=== PATIENT | female | born 1955 | race Two or more races ===

== ENCOUNTER → 2016-09-27 | Outpatient (CLI) | payer OTHER ==
[2016-07-14 11:00] VITALS: BP 102/46
[~2016-09-27] MED LIST: ATOR40TA PO; CITA10TA4 PO; IBUP-1027 PO; LISI1TAB7 PO; METF500T4 PO; TRAM50TA PO
--- NOTE | 2016-09-27 12:01 | RAD ---
Radionuclide bone scan, 09/27/2016: History: Staging breast cancer Whole body imaging was performed following IV injection of 26.0 mCi of technetium 99m MDP. No previous bone scan is available at this time for correlative purposes. The following findings are delineated: 1. There is mildly increased activity in the mid to lower lumbar spine at the L3-4 level. This is a nonspecific finding which may be on an arthritic basis. A solitary bone metastasis is less likely. Correlation with lumbar spine radiographs is suggested. 2. Increased activity at both knees, feet, wrists and shoulders is compatible with arthritis. 3. Activity of radionuclide about the skeleton and major joints is otherwise unremarkable.
== END | disposition home or self-care (01) ==
LOC: NM 07:58
PROVIDERS: ATTEND Internal Medicine Hematology & Oncology
DX: C50.212 Malignant neoplasm of upper-inner quadrant of left female breast (principal)
CPT/HCPCS: 78306; 96374; A9503

== ENCOUNTER → 2016-11-17 | Outpatient (CLI) | payer OTHER ==
[2016-07-14 11:00] VITALS: BP 102/46
--- NOTE | 2016-11-17 14:36 | KCIC ---
PROCEDURE Bone mineral density exam HISTORY Postmenopausal, diabetes, hysterectomy COMPARISON None FINDINGS Bone mineral density exam utilizing DEXA was performed. Left hip bone mineral density of 0.648 grams/centimeter square corresponds with T-score-2.4 and a Z-score-1.4. Lumbar spine bone mineral density of 0.758 grams/centimeter squared corresponds with T-score-2.4 and a Z-score of-1.0. World Health Organization criteria for bone mineral density interpretation: Normal T-score greater than or equal to-1.0, Osteopenia T score between-1.0 and-2.5, Osteoporosis T-score less than or equal to-2.5. IMPRESSION 1. There is osteopenia of the lumbar spine and the left hip. Electronically signed by: Russell Rivas MD (Nov 17, 2016 14:34:46)
== END | disposition home or self-care (01) ==
LOC: KCIC DEXA 13:16
PROVIDERS: ATTEND Internal Medicine Hematology & Oncology
DX: Z78.0 Asymptomatic menopausal state (principal); M85.80 Other specified disorders of bone density and structure, unspecified site
CPT/HCPCS: 77080

== ENCOUNTER 2018-02-23 04:38 | Emergency (ER) | payer OTHER ==
[2018-02-23 05:06] LABS: ADD MAN DIFF? NO
[2018-02-23 05:08] LABS: BASO # 0.1 x10^3/uL (0.0-0.2); BASO % 1 % (0-3); EOS # 0.2 x10^3/uL (0.0-0.7); EOS % 3 % (0-3); HEMATOCRIT 36.3 % (36.0-47.0); HEMOGLOBIN 12.5 g/dL (12.0-15.5); LYMPH # 2.2 x10^3/uL (1.0-4.8); LYMPH % 27 % (24-48); MEAN CORPUSCULAR HEMOGLOBIN 31 pg (25-35); MEAN CORPUSCULAR HGB CONC 35 g/dL (31-37); MEAN CORPUSCULAR VOLUME 89 fL (79-100); MONO # 0.7 x10^3/uL (0.0-1.1); MONO % 9 % (0-9); NEUT # 4.8 x10^3uL (1.8-7.7); NEUT % 60 % (31-73); PLATELET COUNT 342 x10^3/uL (140-400); RED BLOOD COUNT 4.08 x10^6/uL (3.50-5.40); RED CELL DISTRIBUTION WIDTH 14.2 % (11.5-14.5)
[2018-02-23 05:09] LABS: BILIRUBIN,URINE NEGATIVE (NEG); CLARITY,URINE CLEAR; COLOR,URINE YELLOW; GLUCOSE,URINE NEGATIVE (NEG); NITRITE,URINE NEGATIVE (NEG); PROTEIN,URINE NEGATIVE (NEG-TRACE); UROBILINOGEN,URINE 0.2 mg/dL (0.2 mg/dL)
[2018-02-23 05:18] LABS: ANION GAP 13 (6-14); BLOOD UREA NITROGEN 15 mg/dL (7-20); BUN/CREATININE RATIO 15 (6-20); CALCIUM 9.8 mg/dL (8.5-10.1); CARBON DIOXIDE 25 mmol/L (21-32); CHLORIDE 98 mmol/L (98-107); GFR 56.6; GLUCOSE 109 mg/dL (70-99); POTASSIUM 3.5 mmol/L (3.5-5.1); SODIUM 136 mmol/L (136-145)
[2018-02-23 05:24] LABS: ALBUMIN 4.3 g/dL (3.4-5.0); ALBUMIN/GLOBULIN RATIO 1.3 (1.0-1.7); ALK PHOS 111 U/L (46-116); ALT (SGPT) 20 U/L (14-59); AST (SGOT) 18 U/L (15-37); TOTAL BILIRUBIN 0.3 mg/dL (0.2-1.0); TOTAL PROTEIN 7.7 g/dL (6.4-8.2)
[2018-02-23 05:26] LABS: TROPONINI < 0.017 ng/mL (0.000-0.055)
[2018-02-23 05:36] LABS: CKMB INDEX 1.5 % (0-4); CKMB MASS 1.3 ng/mL (0.0-3.6); CREATINE KINASE 89 U/L (26-192)
[2018-02-23 05:47] LABS: BACTERIA,URINE FEW /HPF (0-FEW); SQUAMOUS EPITHELIAL CELL,UR FEW /LPF; WBC,URINE 0 /HPF (0-4)
== END 2018-02-23 06:23 | disposition home or self-care (01) ==
LOC: ER 04:38
DX: M79.1 Myalgia (principal); E78.00 Pure hypercholesterolemia, unspecified; E11.9 Type 2 diabetes mellitus without complications; I10 Essential (primary) hypertension
CPT/HCPCS: 36415; 80053; 81001; 82553; 84484; 85025; 87086; 99284

== ENCOUNTER → 2018-12-25 | Outpatient (CLI) | payer OTHER ==
[2018-02-23 05:50] VITALS: BP 127/65
[~2018-12-25] MED LIST changes: +ANAS1TAB47 PO; +DENO60DI SQ; +METF500T16 PO; -METF500T4 PO
--- NOTE | 2018-12-25 14:16 | RAD ---
DATE: 12/25/2018 EXAM: DIGITAL DIAGNOSTIC RT HISTORY: Left mastectomy COMPARISON: 03/02/2016, 03/22/2016, 06/06/2017 mammographic exams This study was interpreted with the benefit of Computerized Aided Detection (CAD). Breast Density: HETERO The breast parenchyma is heterogenously dense, which could reduce sensitivity of mammography. Breast parenchyma level C. FINDINGS: No new mass. No suspicious calcific lesion or distortion. Benign-appearing right axillary lymph nodes are present. IMPRESSION: Benign and stable findings. Tomosynthesis is recommended for future mammographic examinations considering the breast density and patient history of left mastectomy. BI-RADS CATEGORY: 1 NEGATIVE RECOMMENDED FOLLOW-UP: 12M 12 MONTH FOLLOW-UP PQRS compliance statement: Patient information was entered into a reminder system with a target due date in one year for the next mammogram. Mammography is a sensitive method for finding small breast cancers, but it does not detect them all and is not a substitute for careful clinical examination. A negative mammogram does not negate a clinically suspicious finding and should not result in delay in biopsying a clinically suspicious abnormality. "Our facility is accredited by the [employer] Mammography Program."
== END | disposition home or self-care (01) ==
LOC: MAMMO 12:33
PROVIDERS: ATTEND Internal Medicine Hematology & Oncology
DX: C50.212 Malignant neoplasm of upper-inner quadrant of left female breast (principal); Z17.0 Estrogen receptor positive status [ER+]; Z90.12 Acquired absence of left breast and nipple
CPT/HCPCS: 77065

== ENCOUNTER → 2020-01-03 | Outpatient (CLI) | payer OTHER ==
[2018-02-23 05:50] VITALS: BP 127/65
[~2020-01-03] MED LIST changes: +LISI1TAB20 PO; -LISI1TAB7 PO
--- NOTE | 2020-01-03 11:37 | RAD ---
EXAMINATION: Diagnostic right breast mammogram, 01/03/2020 10:45 AM CLINICAL INDICATION: 64-year-old woman presenting for right breast diagnostic mammogram. History of left breast cancer post mastectomy in 2016. COMPARISON: Right breast mammogram 12/25/2018 , 06/06/2017 TECHNIQUE: Digital full-field CC and MLO views, and CC and MLO tomosynthesis views of the right breast were obtained. CAD was utilized. FINDINGS: The right breast is heterogeneously dense, which may obscure small masses. There is no mass, suspicious calcification, or architectural distortion. IMPRESSION: 1. No mammographic evidence of malignancy. 2. BI-RADS 1: Negative. 3. Routine annual screening mammogram is recommended in 1 year. The patient will receive a reminder letter by mail when she is due for her next exam. Electronically signed by: Brandi Virk MD (01/03/2020 11:34 AM) [id number]
== END | disposition home or self-care (01) ==
LOC: MAMMO 10:28
PROVIDERS: ATTEND Internal Medicine Hematology & Oncology
DX: C50.212 Malignant neoplasm of upper-inner quadrant of left female breast (principal); Z17.0 Estrogen receptor positive status [ER+]
CPT/HCPCS: 77065; G0279; 77061

== ENCOUNTER → 2021-02-18 | Outpatient (CLI) | payer OTHER ==
[2018-02-23 05:50] VITALS: BP 127/65
--- NOTE | 2021-02-18 15:51 | RAD ---
[facility] DIGITAL MAMMO SCREENING UNILT+FRANCISCO J 02/18/2021 12:48 PM INDICATION: History of left mastectomy. Screening. COMPARISON: 01/03/2020, 12/25/2018, 06/06/2017 TECHNIQUE: 3D tomosynthesis was performed in CC and MLO projections. 2D views were obtained from the 3D data. CAD was utilized as needed. FINDINGS: Breast density: Category C: The breats are heterogeneously dense, which may obscure small masses. Right breast: There are no suspicious microcalcifications, masses or areas of architectural distortio n. Left breast: There are no suspicious microcalcifications, masses or areas of architectural distortion . Right mammogram is compared to prior examinations appears unchanged. IMPRESSION: Negative right mammogram. BI-RADS category: 1; Negative Recommendations: Recommend annual screening mammography in one year. Electronically signed by: Anni Romero MD (02/18/2021 3:49 PM) [email or web address]
== END ==
LOC: MAMMO 12:47
PROVIDERS: ATTEND Family Medicine
DX: Z12.31 Encounter for screening mammogram for malignant neoplasm of breast (principal)
CPT/HCPCS: 77063; 77067

== ENCOUNTER 2021-03-26 13:34 | Emergency (ER) | payer OTHER ==
[2018-02-23 05:50] VITALS: BP 127/65
== END 2021-03-26 16:06 | disposition left against medical advice (07) ==
LOC: ER 13:34
DX: R10.9 Unspecified abdominal pain (principal); Z53.21 Procedure and treatment not carried out due to patient leaving prior to being seen by health care provider

== ENCOUNTER 2021-12-06 15:11 | Inpatient (IN) | payer OTHER ==
[~2021-12-06] VITALS: Ht 162.6 cm; Wt 54.7 kg
[~2021-12-06 15:11] MED LIST changes: -CITA10TA4 PO; +CITA10TA5 PO; -LISI1TAB20 PO; +LISI1TAB39 PO
[2021-12-06] MEDS ORDERED: IV NORMAL SALINE 1000ML BAG 1,000 ML IV ONE (16:00)
--- NOTE | 2021-12-06 16:10 | PHYS DOC ---
Past Medical History Past Medical History: Cancer, Diabetes-Type II, High Cholesterol, Hypertension, Other Additional Past Medical Histor: breast cancer Past Surgical History: Cancer Surgery, Hysterectomy, Other Additional Past Surgical Histo: left mastectomy, back Smoking Status: Current Every Day Smoker Alcohol Use: Heavy Drug Use: None General Adult EDM: Chief Complaint: WEAKNESS/GENERALIZED HPI: HPI: Patient is a 66-year-old female who presents today with generalized weakness, body aches, right leg pain and chills. Patient is [place]-speaking only so all information obtained during the HPI and review of systems was obtained using interpretive services. Patient states that she has had generalized weakness body aches and chills over the last week, and they have progressively gotten worse, she also states that her right leg has been causing her pain up to 2 weeks, she denies trauma or or any other injury at this time, she does state that she has a history of back surgery in the past but she does not feel this is related to this. She states that she has a past medical history of diabetes and breast cancer in the past, she is not currently having any treatment for her breast cancer at this time, she sees Dr. Lee for all medical management of her issues. [] Review of Systems: Review of Systems: Constitutional: chills. [] Eyes: Denies change in visual acuity. [] HENT: Denies nasal congestion or sore throat. [] Respiratory: Denies cough or shortness of breath. [] Cardiovascular: Denies chest pain or edema. [] GI: Denies abdominal pain, nausea, vomiting, bloody stools or diarrhea. [] : Denies dysuria. [] Musculoskeletal: Body aches and right leg pain Integument: Denies rash. [] Neurologic: Generalized weakness denies headache, focal weakness or sensory changes. [] Endocrine: Denies polyuria or polydipsia. [] Lymphatic: Denies swollen glands. [] Psychiatric: Denies depression or anxiety. [] Heart Score: C/O Chest Pain: No Risk Factors: Risk Factors: DM, Current or recent (<one month) smoker, HTN, HLP, family history of CAD, obesity. Risk Scores: Score 0 - 3: 2.5% MACE over next 6 weeks - Discharge Home Score 4 - 6: 20.3% MACE over next 6 weeks - Admit for Clinical Observation Score 7 - 10: 72.7% MACE over next 6 weeks - Early Invasive Strategies Current Medications: Current Medications Medications (Trade) Dose Ordered Sig/Jefry Start Time Stop Time Status Last Admin Dose Admin Sodium Chloride 1,000 ml @ 999 mls/hr 1X ONCE 12/06/21 16:00 12/06/21 17:00 Allergies: Allergies: Allergies Coded Allergies Type Severity Reaction Last Updated Verified No Known Drug Allergies 12/06/21 No Physical Exam: PE: Constitutional: Well developed, well nourished, mild distress, non-toxic appearance. [] HENT: Normocephalic, atraumatic, bilateral external ears normal, oropharynx moist, no oral exudates, nose normal. [] Eyes: PERRLA, EOMI, conjunctiva normal, no discharge. [] Neck: Normal range of motion, no tenderness, supple, no stridor, no nuchal rigidity Cardiovascular:Heart rate regular rhythm, no murmur [] Lungs & Thorax: Bilateral breath sounds clear to auscultation [] Abdomen: Bowel sounds normal, soft, no tenderness, no masses, no pulsatile masses. [] Skin: Warm, dry, no erythema, no rash. [] Back: No tenderness, no CVA tenderness. [] Extremities: No tenderness, no cyanosis, no clubbing, ROM intact, no edema. [] Neurologic: Alert and oriented X 3, normal motor function, normal sensory function, no focal deficits noted. [] Psychologic: Affect normal, judgement normal, mood normal. [] Current Patient Data: Labs: Laboratory Tests Test 12/06/21 13:29 12/06/21 16:10 12/06/21 17:28 Urine Collection Type Unknown Urine Color (Auto) Yellow Urine Turbidity Clear Urine pH (Auto) 6.5 Urine Specific [place] 1.027 Urine Protein (Auto) Negative mg/dL Urine Glucose (Auto)(UA) Negative mg/dL Urine Ketones (Auto) Negative mg/dL Urine Blood (Auto) Trace Urine Nitrite Negative Urine Bilirubin (Auto) Negative Urine Urobilinogen (Auto) Normal mg/dL Urine Leukocyte Esterase (Auto) Negative Urine RBC 0 /HPF Urine WBC 0 /HPF Urine Squamous Epithelial Cells Few /LPF Urine Bacteria 0 /HPF Urine Mucus Slight /LPF White Blood Count 9.8 x10^3/uL Red Blood Count 3.95 x10^6/uL Hemoglobin 11.8 g/dL Hematocrit 34.4 % Mean Corpuscular Volume 87 fL Mean Corpuscular Hemoglobin 30 pg Mean Corpuscular Hemoglobin Concent 34 g/dL Red Cell Distribution Width 13.7 % Platelet Count 263 x10^3/uL Neutrophils (%) (Auto) 80 % Lymphocytes (%) (Auto) 14 % Monocytes (%) (Auto) 4 % Eosinophils (%) (Auto) 1 % Basophils (%) (Auto) 1 % Neutrophils # (Auto) 7.8 x10^3/uL Lymphocytes # (Auto) 1.4 x10^3/uL Monocytes # (Auto) 0.4 x10^3/uL Eosinophils # (Auto) 0.1 x10^3/uL Basophils # (Auto) 0.1 x10^3/uL Sodium Level 136 mmol/L Potassium Level 3.7 mmol/L Chloride Level 101 mmol/L Carbon Dioxide Level 20 mmol/L Anion Gap 15 Blood Urea Nitrogen 26 mg/dL Creatinine 0.9 mg/dL Estimated GFR (Cockcroft-Gault) 63.0 BUN/Creatinine Ratio 29 Glucose Level 118 mg/dL Lactic Acid Level 2.6 mmol/L Calcium Level 9.4 mg/dL Total Bilirubin 0.3 mg/dL Aspartate Amino Transf (AST/SGOT) 23 U/L Alanine Aminotransferase (ALT/SGPT) 37 U/L Alkaline Phosphatase 80 U/L Troponin I High Sensitivity 4 ng/L Total Protein 7.2 g/dL Albumin 3.9 g/dL Albumin/Globulin Ratio 1.2 Influenza Type A Antigen Negative Influenza Type B Antigen Negative SARS-CoV-2 Antigen (Rapid) Negative Current Medications Medications (Trade) Dose Ordered Sig/Jefry Route PRN Reason Start Time Stop Time Status Last Admin Dose Admin Sodium Chloride 1,000 ml @ 999 mls/hr 1X ONCE IV 12/06/21 16:00 12/06/21 17:00 DC 12/06/21 16:25 Iohexol (Omnipaque 300 Mg/ml) 75 ml 1X ONCE IV 12/06/21 18:00 12/06/21 18:01 DC 12/06/21 18:02 Info (CONTRAST GIVEN -- Rx MONITORING) 1 each PRN DAILY PRN MC SEE COMMENTS 12/06/21 18:00 12/08/21 17:59 Vital Signs: Vital Signs Date Time Temp Pulse Resp B/P (MAP) Pulse Ox O2 Delivery O2 Flow Rate FiO2 12/06/21 18:28 84 18 155/74 (101) 98 12/06/21 15:50 97.8 86 22 155/75 (101) 100 Room Air 97.8 Vital Signs Date Time Temp Pulse Resp B/P (MAP) Pulse Ox O2 Delivery O2 Flow Rate FiO2 12/06/21 18:28 84 18 155/74 (101) 98 12/06/21 15:50 97.8 86 22 155/75 (101) 100 Room Air 97.8 Vital Signs Date Time Temp Pulse Resp B/P (MAP) Pulse Ox O2 Delivery O2 Flow Rate FiO2 12/06/21 15:50 97.8 86 22 155/75 (101) 100 Room Air 97.8 EKG: EKG: EKG done at [address] Combs at 1618 shows sinus rhythm at a rate of 79 with no ectopy at a NJ interval of 150 ms with a QTC of 44 ms no STEMI [] Radiology/Procedures: Radiology/Procedures: REASON: weakness PROCEDURE: CHEST AP ONLY XR CHEST 1V 12/06/2021 4:26 PM INDICATION: Weakness COMPARISON: None available TECHNIQUE: Portable frontal view of the chest is provided. FINDINGS: The cardiomediastinal silhouette is within normal limits. Lungs are clear. Surgical clips identified in the left hilar region. There are no significant pleural effusions. There is no pulmonary vascular congestion. No pneumothorax. No suspicious osseous abnormality. IMPRESSION: There is no acute cardiopulmonary process. Electronically signed by: Anni Romero MD (12/06/2021 4:30 PM) [facility] RE[facility]: GENERALIZED WEAKNESS, ELEVATED LACTIC ACID PROCEDURE: CT CHEST ABD PELVIS W/CONTRAST CT chest abdomen and pelvis with contrast: History: Generalized weakness Axial helical images of the chest abdomen and pelvis were obtained after the administration of 100 cc IV Isovue-370 contrast. Comparison: none CT OF THE CHEST WITH IV CONTRAST: There is no mediastinal lymphadenopathy or hematoma. Lymphadenopathy: no Thoracic aorta: normal Lungs and pleural margins: clear There is approximately 50 percent stenosis of the proximal left subclavian artery. Impression: Approximately 50 percent stenosis of left subclavian artery. No acute findings. End Impression CT OF THE ABDOMEN AND PELVIS WITH IV CONTRAST: Liver: Unremarkable Spleen: Unremarkable Pancreas: Unremarkable Adrenal Glands: Unremarkable Kidneys: 7 mm hypoattenuating lesion in the posterior lateral mid left kidney is too small to characterize. Evaluation of stomach and bowel is limited without oral contrast. Lymphadenopathy: no. Free fluid: no. Free air: no. The bladder appears normal. Impression: No acute findings. End impression PQRS Compliance Statement: One or more of the following individualized dose reduction techniques were u tilized for this examination: 1. Automated exposure control 2. Adjustment of the mA and/or kV according to patient size 3. Use of iterative reconstruction technique Electronically signed by: Yandel Conteh III, MD (12/06/2021 6:20 PM) [facility] DICTATED and SIGNED BY: YANDEL CONTEH III, MD DATE: 12/06/211810 [] Course & Med Decision Making: Course & Med Decision Making Pertinent Labs and Imaging studies reviewed. (See chart for details) 1844 with the use of interpretive services I was able to review radiological and laboratory results with patient I did inform her that the only abnormal findings we found was her lactic acid was elevated and that is concerning because I cannot figure out why she is not feeling well. Due to patient's past medical history, I think it would be prudent to admit the patient for further evaluation by the internal medicine service. Patient is agreeable with the plan of care, I did reassess the patient's back and leg she continues to have right leg pain but also has low back pain as well, I will order CT lumbar reconstruction of the low back because the patient has a past medical history of back surgery. I did speak to Dr. Oneill and he is agreeable to admitting this patient for further evaluation and management. Hugo Disclaimer: Hugo Disclaimer: This electronic medical record was generated, in whole or in part, using a voice recognition dictation system. Departure Departure Impression: Primary Impression: Generalized weakness Additional Impressions: Elevated lactic acid level Back pain Qualified Codes: M54.41 - Lumbago with sciatica, right side Disposition: 09 ADMITTED INPATIENT Admitting Physician: SHY Condition: STABLE Referrals: ELADIA LEE MD (PCP) ENRIQUE CABRALES APRN Dec 06, 2021 16:10
[2021-12-06 16:31] LABS: BASO # 0.1 x10^3/uL (0.0-0.2); BASO % 1 % (0-3); EOS # 0.1 x10^3/uL (0.0-0.7); EOS % 1 % (0-3); HEMATOCRIT 34.4 % (36.0-47.0); HEMOGLOBIN 11.8 g/dL (12.0-15.5); LYMPH # 1.4 x10^3/uL (1.0-4.8); LYMPH % 14 % (24-48); MEAN CORPUSCULAR HEMOGLOBIN 30 pg (25-35); MEAN CORPUSCULAR HGB CONC 34 g/dL (31-37); MEAN CORPUSCULAR VOLUME 87 fL (79-100); MONO # 0.4 x10^3/uL (0.0-1.1); MONO % 4 % (0-9); NEUT # 7.8 x10^3/uL (1.8-7.7); NEUT % 80 % (31-73); PLATELET COUNT 263 x10^3/uL (140-400); RED BLOOD COUNT 3.95 x10^6/uL (3.50-5.40); RED CELL DISTRIBUTION WIDTH 13.7 % (11.5-14.5); WHITE BLOOD COUNT 9.8 x10^3/uL (4.0-11.0)
--- NOTE | 2021-12-06 16:33 | RAD ---
XR CHEST 1V 12/06/2021 4:26 PM INDICATION: Weakness COMPARISON: None available TECHNIQUE: Portable frontal view of the chest is provided. FINDINGS: The cardiomediastinal silhouette is within normal limits. Lungs are clear. Surgical clips identified in the left hilar region. There are no significant pleural effusions. There is no pulmonary vascular congestion. No pneumothora x. No suspicious osseous abnormality. IMPRESSION: There is no acute cardiopulmonary process. Electronically signed by: Anni Romero MD (12/06/2021 4:30 PM) [facility]
[2021-12-06 16:45] LABS: CALCIUM 9.4 mg/dL (8.5-10.1); CREATININE 0.9 mg/dL (0.6-1.0); POTASSIUM 3.7 mmol/L (3.5-5.1)
[2021-12-06 16:51] LABS: ALBUMIN 3.9 g/dL (3.4-5.0); ALBUMIN/GLOBULIN RATIO 1.2 (1.0-1.7); TOTAL BILIRUBIN 0.3 mg/dL (0.2-1.0); TOTAL PROTEIN 7.2 g/dL (6.4-8.2)
[2021-12-06 17:00] LABS: BACTERIA,URINE 0 /HPF (0-FEW); RBC,URINE 0 /HPF (0-2); WBC,URINE 0 /HPF (0-4)
[2021-12-06 17:48] LABS: INFLUENZA A PATIENT NEGATIVE (NEGATIVE); INFLUENZA B PATIENT NEGATIVE (NEGATIVE)
[2021-12-06] MEDS ORDERED: IOHEXOL 300 MG/ML 100ML VIAL. IV ONE (18:00)
[2021-12-06] MEDS ORDERED: CONTRAST GIVEN. MC PRN (18:00)
--- NOTE | 2021-12-06 18:22 | RAD ---
CT chest abdomen and pelvis with contrast: History: Generalized weakness Axial helical images of the chest abdomen and pelvis were obtained after the administration of 100 cc IV Isovue-370 contrast. Comparison: none CT OF THE CHEST WITH IV CONTRAST: There is no mediastinal lymphadenopathy or hematoma. Lymphadenopathy: no Thoracic aorta: normal Lungs and pleural margins: clear There is approximately 50 percent stenosis of the proximal left subclavian artery. Impression: Approximately 50 percent stenosis of left subclavian artery. No acute findings. End Impression CT OF THE ABDOMEN AND PELVIS WITH IV CONTRAST: Liver: Unremarkable Spleen: Unremarkable Pancreas: Unremarkable Adrenal Glands: Unremarkable Kidneys: 7 mm hypoattenuating lesion in the posterior lateral mid left kidney is too small to charact erize. Evaluation of stomach and bowel is limited without oral contrast. Lymphadenopathy: no. Free fluid: no. Free air: no. The bladder appears normal. Impression: No acute findings. End impression PQRS Compliance Statement: One or more of the following individualized dose reduction techniques were utilized for this examinat ion: 1. Automated exposure control 2. Adjustment of the mA and/or kV according to patient size 3. Use of iterative reconstruction technique Electronically signed by: Vladimir Ochoa III, MD (12/06/2021 6:20 PM) [facility]
[2021-12-06] MEDS ORDERED: ONDANSETRON PF 4 MG/2 ML VIAL. IVP PRN (19:00)
--- NOTE | 2021-12-06 19:23 | RAD ---
CT lumbar spine without contrast History: Back pain Axial helical images of the lumbar spine were obtained without contrast. Axial, coronal and sagittal reconstruction was performed. Findings: There is beam hardening artifact due to bilateral pedicle screws and posterior fusion rods from prior fusion of L4-S1. The vertebral bodies are aligned. There is no loss of vertebral body stature. Evaluation of the central canal is limited without contrast. There is loss of intervertebral disc hei ght at L3-4. There is a diffuse circumferential disc bulge and hypertrophic ligamentum flavum resulting in moderat e central stenosis at L2-L3 and marked central stenosis at L3-L4. There is marked narrowing of multiple or from the level exerts is loss of fat around the ascending ne rve roots on the right at L3-L4 and L5-S1. On the right at L2-L3 and L4-L5 Impression: 1. Prior fusion of L4-S1. 2. Degenerative changes with multilevel central neuroforaminal stenosis as described above. 2. Compression of the intraforaminal course of the exiting nerve roots on the right L3-4 and L5-S1. End of impression PQRS Compliance Statement: One or more of the following individualized dose reduction techniques were utilized for this examinat ion: 1. Automated exposure control 2. Adjustment of the mA and/or kV according to patient size 3. Use of iterative reconstruction technique Electronically signed by: Vladimir Ochoa III, MD (12/06/2021 7:20 PM) [facility]
--- NOTE | 2021-12-06 19:53 | EKG ---
[facility] [address] [place] [address] Test Date: 2021-12-06 Test Time: 16:16:46 Pat Name: GORDY CHRISTIAN Department: Room: [facility] Gender: F Human Resource Advisor: : [id number] Requested By: ENRIQUE CABRALES Order Number: [id number] Reading MD: Ruperto Rg Measurements Intervals Cummings Rate: 79 P: 50 CO: 150 QRS: -25 QRSD: 90 T: 24 QT: 386 QTc: 444 Interpretive Statements SINUS RHYTHM LEFTWARD AXIS Electronically Signed On 12-09-2021 17:18:58 CDT by uRperto Rg
[2021-12-06 19:55] VITALS: BP 128/70
[2021-12-06 23:09] VITALS: BP 122/63
[2021-12-07 00:24] VITALS: BP 128/70
[2021-12-07 03:25] VITALS: BP 120/66
[2021-12-07 07:00] VITALS: BP 123/61
[2021-12-07] MEDS ORDERED: IV DEXTROSE 5% 250 ML BAG. IV PRN (08:15)
[2021-12-07] MEDS ORDERED: DEXTROSE 50% 25 GM / 50ML DISP.SYRIN. IV PRN (08:15)
--- NOTE | 2021-12-07 08:16 | PDOC1 ---
History and Physical Date of Admission Date of Admission DATE: 12/07/21 TIME: 08:02 Identification/Chief Complaint Chief Complaint Weakness, back pain, right leg pain Source Source: Patient History of Present Illness History of Present Illness Patient is a 66-year-old female with past medical history DM2, presents to the ED with complaints of generalized weakness, body aches, and right leg pain. Patient notes her symptoms have been ongoing for the past week and progressively worsening. She states her leg pain has been for the past 2 weeks. She denies any associated trauma or falls. She does have a prior history of back surgery. Labs on admission showed hemoglobin 11.8, hematocrit 34.4, BUN 26, creatinine 0.9, CBG 118, lactic acid 2.6. CT lumbar spine was obtained in the ED that did show some lumbar nerve root compression. Patient has been admitted for further medical management. Past Medical History Past Medical History Breast cancer, DM2, HTN, HLD Endocrine: Diabetes Past Surgical History Past Surgical History Back surgery Family History Family History: Diabetes Social History Smoke: <1 pack per day ALCOHOL: heavy Drugs: None Current Problem List Problem List Problems Medical Problems: (1) Back pain Status: Acute (2) Elevated lactic acid level Status: Acute (3) Generalized weakness Status: Acute Current Medications Current Medications Current Medications Sodium Chloride 1,000 ml @ 999 mls/hr 1X ONCE IV Last administered on 12/06/21at 16:25; Start 12/06/21 at 16:00; Stop 12/06/21 at 17:00; Status DC Iohexol (Omnipaque 300 Mg/ml) 75 ml 1X ONCE IV Last administered on 12/06/21at 18:02; Start 12/06/21 at 18:00; Stop 12/06/21 at 18:01; Status DC Info (CONTRAST GIVEN -- Rx MONITORING) 1 each PRN DAILY PRN MC SEE COMMENTS; Start 12/06/21 at 18:00; Stop 12/08/21 at 17:59 Ondansetron HCl (Zofran) 4 mg PRN Q8HRS PRN IVP NAUSEA/VOMITING; Start 12/06/21 at 19:00; Stop 12/07/21 at 18:59 Active Scripts Active Reported Arimidex (Anastrozole) 1 Mg Tablet 1 Mg PO DAILY Ibuprofen 400 Mg Tablet 400 Mg PO BID PRN Citalopram Hbr (Citalopram Hydrobromide) 10 Mg Tablet 10 Mg PO DAILY Lipitor (Atorvastatin Calcium) 40 Mg Tablet 40 Mg PO HS Metformin Hcl 500 Mg Tablet 500 Mg PO BIDWMEALS Lisinopril-Hctz 20-25 Mg Tab (Lisinopril/Hydrochlorothiazide) 1 Each Tablet 1 Tab PO DAILY Allergies Allergies: Coded Allergies: No Known Drug Allergies (Unverified , 12/06/21) ROS Review of System GENERAL: Generalized weakness. No history of weight change or fevers. SKIN: No bruising, hair changes or rashes. EYES: No blurred, double or loss of vision. NOSE AND THROAT: No history of nosebleeds, hoarseness or sore throat. HEART: Denies chest pain, denies palpitations. LUNGS: Denies cough, hemoptysis, wheezing or shortness of breath. GASTROINTESTINAL: Nausea. Denies vomiting or abdominal pain. GENITOURINARY: Denies dysuria, frequency, urgency, hematuria. NEUROLOGIC: Denies history of numbness, tingling, tremor or weakness. PSYCHIATRIC: Denies anxiety, denies depression. ENDOCRINE: No history of heat or cold intolerance, polyuria or polydipsia. EXTREMITIES: Right leg pain and weakness. Denies joint stiffness. Physical Exam Physical Exam General: Alert, Oriented X3, Cooperative, No acute distress HEENT: PERRLA, EOMI Lungs: Clear to auscultation, Normal air movement Heart: RRR, no murmurs Cardiovascular: S1, S2 Abdomen: Normal bowel sounds, Soft, No tenderness Extremities: No clubbing, No cyanosis Skin: No rashes, No significant lesion Neuro: Normal speech, Normal tone, Sensation intact Psych/Mental Status: Mental status NL, Mood NL Vitals Vitals Vital Signs Date Time Temp Pulse Resp B/P (MAP) Pulse Ox O2 Delivery O2 Flow Rate FiO2 12/07/21 03:25 97.7 73 18 120/66 (84) 100 Room Air 97.7 Labs Labs Laboratory Tests Test 12/06/21 13:29 12/06/21 16:10 12/06/21 17:28 12/06/21 20:40 Urine Collection Type Unknown Urine Color (Auto) Yellow Urine Turbidity Clear Urine pH (Auto) 6.5 (<5.0-8.0) Urine Specific [place] 1.027 (1.000-1.030) Urine Protein (Auto) Negative mg/dL (Negative) Urine Glucose (Auto)(UA) Negative mg/dL (Negative) Urine Ketones (Auto) Negative mg/dL (Negative) Urine Blood (Auto) Trace (Negative) Urine Nitrite Negative (Negative) Urine Bilirubin (Auto) Negative (Negative) Urine Urobilinogen (Auto) Normal mg/dL (Normal) Urine Leukocyte Esterase (Auto) Negative (Negative) Urine RBC 0 /HPF (0-2) Urine WBC 0 /HPF (0-4) Urine Squamous Epithelial Cells Few /LPF Urine Bacteria 0 /HPF (0-FEW) Urine Mucus Slight /LPF White Blood Count 9.8 x10^3/uL (4.0-11.0) Red Blood Count 3.95 x10^6/uL (3.50-5.40) Hemoglobin 11.8 g/dL (12.0-15.5) Hematocrit 34.4 % (36.0-47.0) Mean Corpuscular Volume 87 fL (79-100) Mean Corpuscular Hemoglobin 30 pg (25-35) Mean Corpuscular Hemoglobin Concent 34 g/dL (31-37) Red Cell Distribution Width 13.7 % (11.5-14.5) Platelet Count 263 x10^3/uL (140-400) Neutrophils (%) (Auto) 80 % (31-73) Lymphocytes (%) (Auto) 14 % (24-48) Monocytes (%) (Auto) 4 % (0-9) Eosinophils (%) (Auto) 1 % (0-3) Basophils (%) (Auto) 1 % (0-3) Neutrophils # (Auto) 7.8 x10^3/uL (1.8-7.7) Lymphocytes # (Auto) 1.4 x10^3/uL (1.0-4.8) Monocytes # (Auto) 0.4 x10^3/uL (0.0-1.1) Eosinophils # (Auto) 0.1 x10^3/uL (0.0-0.7) Basophils # (Auto) 0.1 x10^3/uL (0.0-0.2) Sodium Level 136 mmol/L (136-145) Potassium Level 3.7 mmol/L (3.5-5.1) Chloride Level 101 mmol/L (98-107) Carbon Dioxide Level 20 mmol/L (21-32) Anion Gap 15 (6-14) Blood Urea Nitrogen 26 mg/dL (7-20) Creatinine 0.9 mg/dL (0.6-1.0) Estimated GFR (Cockcroft-Gault) 63.0 BUN/Creatinine Ratio 29 (6-20) Glucose Level 118 mg/dL (70-99) Lactic Acid Level 2.6 mmol/L (0.4-2.0) 1.4 mmol/L (0.4-2.0) Calcium Level 9.4 mg/dL (8.5-10.1) Total Bilirubin 0.3 mg/dL (0.2-1.0) Aspartate Amino Transf (AST/SGOT) 23 U/L (15-37) Alanine Aminotransferase (ALT/SGPT) 37 U/L (14-59) Alkaline Phosphatase 80 U/L (46-116) Troponin I High Sensitivity 4 ng/L (4-50) Total Protein 7.2 g/dL (6.4-8.2) Albumin 3.9 g/dL (3.4-5.0) Albumin/Globulin Ratio 1.2 (1.0-1.7) Influenza Type A Antigen Negative (NEGATIVE) Influenza Type B Antigen Negative (NEGATIVE) SARS-CoV-2 Antigen (Rapid) Negative (NEGATIVE) Test 12/07/21 07:21 Glucose (Fingerstick) 119 mg/dL (70-99) Laboratory Tests Test 12/06/21 13:29 12/06/21 16:10 12/06/21 17:28 12/06/21 20:40 Urine Collection Type Unknown Urine Color (Auto) Yellow Urine Turbidity Clear Urine pH (Auto) 6.5 (<5.0-8.0) Urine Specific [place] 1.027 (1.000-1.030) Urine Protein (Auto) Negative mg/dL (Negative) Urine Glucose (Auto)(UA) Negative mg/dL (Negative) Urine Ketones (Auto) Negative mg/dL (Negative) Urine Blood (Auto) Trace (Negative) Urine Nitrite Negative (Negative) Urine Bilirubin (Auto) Negative (Negative) Urine Urobilinogen (Auto) Normal mg/dL (Normal) Urine Leukocyte Esterase (Auto) Negative (Negative) Urine RBC 0 /HPF (0-2) Urine WBC 0 /HPF (0-4) Urine Squamous Epithelial Cells Few /LPF Urine Bacteria 0 /HPF (0-FEW) Urine Mucus Slight /LPF White Blood Count 9.8 x10^3/uL (4.0-11.0) Red Blood Count 3.95 x10^6/uL (3.50-5.40) Hemoglobin 11.8 g/dL (12.0-15.5) Hematocrit 34.4 % (36.0-47.0) Mean Corpuscular Volume 87 fL (79-100) Mean Corpuscular Hemoglobin 30 pg (25-35) Mean Corpuscular Hemoglobin Concent 34 g/dL (31-37) Red Cell Distribution Width 13.7 % (11.5-14.5) Platelet Count 263 x10^3/uL (140-400) Neutrophils (%) (Auto) 80 % (31-73) Lymphocytes (%) (Auto) 14 % (24-48) Monocytes (%) (Auto) 4 % (0-9) Eosinophils (%) (Auto) 1 % (0-3) Basophils (%) (Auto) 1 % (0-3) Neutrophils # (Auto) 7.8 x10^3/uL (1.8-7.7) Lymphocytes # (Auto) 1.4 x10^3/uL (1.0-4.8) Monocytes # (Auto) 0.4 x10^3/uL (0.0-1.1) Eosinophils # (Auto) 0.1 x10^3/uL (0.0-0.7) Basophils # (Auto) 0.1 x10^3/uL (0.0-0.2) Sodium Level 136 mmol/L (136-145) Potassium Level 3.7 mmol/L (3.5-5.1) Chloride Level 101 mmol/L (98-107) Carbon Dioxide Level 20 mmol/L (21-32) Anion Gap 15 (6-14) Blood Urea Nitrogen 26 mg/dL (7-20) Creatinine 0.9 mg/dL (0.6-1.0) Estimated GFR (Cockcroft-Gault) 63.0 BUN/Creatinine Ratio 29 (6-20) Glucose Level 118 mg/dL (70-99) Lactic Acid Level 2.6 mmol/L (0.4-2.0) 1.4 mmol/L (0.4-2.0) Calcium Level 9.4 mg/dL (8.5-10.1) Total Bilirubin 0.3 mg/dL (0.2-1.0) Aspartate Amino Transf (AST/SGOT) 23 U/L (15-37) Alanine Aminotransferase (ALT/SGPT) 37 U/L (14-59) Alkaline Phosphatase 80 U/L (46-116) Troponin I High Sensitivity 4 ng/L (4-50) Total Protein 7.2 g/dL (6.4-8.2) Albumin 3.9 g/dL (3.4-5.0) Albumin/Globulin Ratio 1.2 (1.0-1.7) Influenza Type A Antigen Negative (NEGATIVE) Influenza Type B Antigen Negative (NEGATIVE) SARS-CoV-2 Antigen (Rapid) Negative (NEGATIVE) Test 12/07/21 07:21 Glucose (Fingerstick) 119 mg/dL (70-99) Images Images PATIENT: GORDY CHRISTIAN OACCOUNT: [id number] : 1955 LOCATION: ER AGE: 66 SEX: F EXAM STATUS: REG ER ORD. PHYSICIAN: ENRIQUE CABRALES APRN REASON: LOW BACK PAIN WITH RIGHT LEG PAIN, HX OF BACK SURGERY PROCEDURE: CT LUMBAR SPINE RECONSTRUCTION CT lumbar spine without contrast History: Back pain Axial helical images of the lumbar spine were obtained without contrast. Axial, coronal and sagittal reconstruction was performed. Findings: There is beam hardening artifact due to bilateral pedicle screws and posterior fusion rods from prior fusion of L4-S1. The vertebral bodies are aligned. There is no loss of vertebral body stature. Evaluation of the central canal is limited without contrast. There is loss of intervertebral disc height at L3-4. There is a diffuse circumferential disc bulge and hypertrophic ligamentum flavum resulting in moderate central stenosis at L2-L3 and marked central stenosis at L3-L4. There is marked narrowing of multiple or from the level exerts is loss of fat around the ascending nerve roots on the right at L3-L4 and L5-S1. On the right at L2-L3 and L4-L5 Impression: 1. Prior fusion of L4-S1. 2. Degenerative changes with multilevel central neuroforaminal stenosis as described above. 2. Compression of the intraforaminal course of the exiting nerve roots on the right L3-4 and L5-S1. End of impression VTE Prophylaxis Ordered VTE Prophylaxis Devices: Yes VTE Pharmacological Prophylaxi: No Assessment/Plan Assessment/Plan Generalized weakness Back pain Spinal stenosis Lactic acidosis Plan: Imaging obtained in the ER notes L4-S1 prior fusion, degenerative changes with central foraminal stenosis, compression of intraforaminal course of nerve root right L3-4, and L5-S1. Lactic acidosis likely secondary to metformin use; will hydrate. At the time my evaluation patient denies significant leg pain or back pain. She does admit to some nausea but denies any vomiting. Gave her my impressions, acute viral illness with some viral gastroenteritis. She states she feels comfortable discharging home with self/family care and follow-up with Dr. Ayala within 5 days. IV fluids Resume home medications FEN - Cardiac diet PPX - SCDs FULL CODE Dispo - discharge home with family care Justifications for Admission Other Justification DAWIT TATE MD Dec 07, 2021 08:16
[2021-12-07] MEDS ORDERED: SERT100T PO (08:19)
[2021-12-07] MEDS ORDERED: PANT40TA77 PO (08:20)
[2021-12-07] MEDS ORDERED: ALEN70TA71 PO (08:20)
[2021-12-07] MEDS ORDERED: ATOR20TA58 PO (08:21)
[2021-12-07] MEDS ORDERED: hydroCHLOROthiazide 25 MG TABLET PO SCH (09:00)
[2021-12-07] MEDS ORDERED: CITALOPRAM 10 MG TABLET. PO SCH (09:00)
[2021-12-07] MEDS ORDERED: LISINOPRIL 20 MG TABLET PO SCH (09:00)
[2021-12-07 10:13] VITALS: BP 119/61
--- NOTE | 2021-12-07 10:52 | PDOC3 ---
Discharge Summary Visit Information Date of Admission: Dec 07, 2021 Date of Discharge: Dec 07, 2021 Final Diagnosis Problems Medical Problems: (1) Back pain Status: Acute (2) Elevated lactic acid level Status: Acute (3) Generalized weakness Status: Acute Brief Hospital Course Allergies Allergies Coded Allergies Type Severity Reaction Last Updated Verified No Known Drug Allergies 12/06/21 No Vital Signs Vital Signs Date Time Temp Pulse Resp B/P (MAP) Pulse Ox O2 Delivery O2 Flow Rate FiO2 12/07/21 10:13 98.0 77 18 119/61 (80) 100 Room Air 98.0 Lab Results Laboratory Tests Test 12/06/21 13:29 12/06/21 16:10 12/06/21 17:28 12/06/21 20:40 Urine Collection Type Unknown Urine Color (Auto) Yellow Urine Turbidity Clear Urine pH (Auto) 6.5 (<5.0-8.0) Urine Specific [place] 1.027 (1.000-1.030) Urine Protein (Auto) Negative mg/dL (Negative) Urine Glucose (Auto)(UA) Negative mg/dL (Negative) Urine Ketones (Auto) Negative mg/dL (Negative) Urine Blood (Auto) Trace (Negative) Urine Nitrite Negative (Negative) Urine Bilirubin (Auto) Negative (Negative) Urine Urobilinogen (Auto) Normal mg/dL (Normal) Urine Leukocyte Esterase (Auto) Negative (Negative) Urine RBC 0 /HPF (0-2) Urine WBC 0 /HPF (0-4) Urine Squamous Epithelial Cells Few /LPF Urine Bacteria 0 /HPF (0-FEW) Urine Mucus Slight /LPF White Blood Count 9.8 x10^3/uL (4.0-11.0) Red Blood Count 3.95 x10^6/uL (3.50-5.40) Hemoglobin 11.8 g/dL (12.0-15.5) Hematocrit 34.4 % (36.0-47.0) Mean Corpuscular Volume 87 fL (79-100) Mean Corpuscular Hemoglobin 30 pg (25-35) Mean Corpuscular Hemoglobin Concent 34 g/dL (31-37) Red Cell Distribution Width 13.7 % (11.5-14.5) Platelet Count 263 x10^3/uL (140-400) Neutrophils (%) (Auto) 80 % (31-73) Lymphocytes (%) (Auto) 14 % (24-48) Monocytes (%) (Auto) 4 % (0-9) Eosinophils (%) (Auto) 1 % (0-3) Basophils (%) (Auto) 1 % (0-3) Neutrophils # (Auto) 7.8 x10^3/uL (1.8-7.7) Lymphocytes # (Auto) 1.4 x10^3/uL (1.0-4.8) Monocytes # (Auto) 0.4 x10^3/uL (0.0-1.1) Eosinophils # (Auto) 0.1 x10^3/uL (0.0-0.7) Basophils # (Auto) 0.1 x10^3/uL (0.0-0.2) Sodium Level 136 mmol/L (136-145) Potassium Level 3.7 mmol/L (3.5-5.1) Chloride Level 101 mmol/L (98-107) Carbon Dioxide Level 20 mmol/L (21-32) Anion Gap 15 (6-14) Blood Urea Nitrogen 26 mg/dL (7-20) Creatinine 0.9 mg/dL (0.6-1.0) Estimated GFR (Cockcroft-Gault) 63.0 BUN/Creatinine Ratio 29 (6-20) Glucose Level 118 mg/dL (70-99) Lactic Acid Level 2.6 mmol/L (0.4-2.0) 1.4 mmol/L (0.4-2.0) Calcium Level 9.4 mg/dL (8.5-10.1) Total Bilirubin 0.3 mg/dL (0.2-1.0) Aspartate Amino Transf (AST/SGOT) 23 U/L (15-37) Alanine Aminotransferase (ALT/SGPT) 37 U/L (14-59) Alkaline Phosphatase 80 U/L (46-116) Troponin I High Sensitivity 4 ng/L (4-50) Total Protein 7.2 g/dL (6.4-8.2) Albumin 3.9 g/dL (3.4-5.0) Albumin/Globulin Ratio 1.2 (1.0-1.7) Influenza Type A Antigen Negative (NEGATIVE) Influenza Type B Antigen Negative (NEGATIVE) SARS-CoV-2 Antigen (Rapid) Negative (NEGATIVE) Test 12/07/21 07:21 Glucose (Fingerstick) 119 mg/dL (70-99) Laboratory Tests Test 12/06/21 13:29 12/06/21 16:10 12/06/21 17:28 12/06/21 20:40 Urine Collection Type Unknown Urine Color (Auto) Yellow Urine Turbidity Clear Urine pH (Auto) 6.5 (<5.0-8.0) Urine Specific [place] 1.027 (1.000-1.030) Urine Protein (Auto) Negative mg/dL (Negative) Urine Glucose (Auto)(UA) Negative mg/dL (Negative) Urine Ketones (Auto) Negative mg/dL (Negative) Urine Blood (Auto) Trace (Negative) Urine Nitrite Negative (Negative) Urine Bilirubin (Auto) Negative (Negative) Urine Urobilinogen (Auto) Normal mg/dL (Normal) Urine Leukocyte Esterase (Auto) Negative (Negative) Urine RBC 0 /HPF (0-2) Urine WBC 0 /HPF (0-4) Urine Squamous Epithelial Cells Few /LPF Urine Bacteria 0 /HPF (0-FEW) Urine Mucus Slight /LPF White Blood Count 9.8 x10^3/uL (4.0-11.0) Red Blood Count 3.95 x10^6/uL (3.50-5.40) Hemoglobin 11.8 g/dL (12.0-15.5) Hematocrit 34.4 % (36.0-47.0) Mean Corpuscular Volume 87 fL (79-100) Mean Corpuscular Hemoglobin 30 pg (25-35) Mean Corpuscular Hemoglobin Concent 34 g/dL (31-37) Red Cell Distribution Width 13.7 % (11.5-14.5) Platelet Count 263 x10^3/uL (140-400) Neutrophils (%) (Auto) 80 % (31-73) Lymphocytes (%) (Auto) 14 % (24-48) Monocytes (%) (Auto) 4 % (0-9) Eosinophils (%) (Auto) 1 % (0-3) Basophils (%) (Auto) 1 % (0-3) Neutrophils # (Auto) 7.8 x10^3/uL (1.8-7.7) Lymphocytes # (Auto) 1.4 x10^3/uL (1.0-4.8) Monocytes # (Auto) 0.4 x10^3/uL (0.0-1.1) Eosinophils # (Auto) 0.1 x10^3/uL (0.0-0.7) Basophils # (Auto) 0.1 x10^3/uL (0.0-0.2) Sodium Level 136 mmol/L (136-145) Potassium Level 3.7 mmol/L (3.5-5.1) Chloride Level 101 mmol/L (98-107) Carbon Dioxide Level 20 mmol/L (21-32) Anion Gap 15 (6-14) Blood Urea Nitrogen 26 mg/dL (7-20) Creatinine 0.9 mg/dL (0.6-1.0) Estimated GFR (Cockcroft-Gault) 63.0 BUN/Creatinine Ratio 29 (6-20) Glucose Level 118 mg/dL (70-99) Lactic Acid Level 2.6 mmol/L (0.4-2.0) 1.4 mmol/L (0.4-2.0) Calcium Level 9.4 mg/dL (8.5-10.1) Total Bilirubin 0.3 mg/dL (0.2-1.0) Aspartate Amino Transf (AST/SGOT) 23 U/L (15-37) Alanine Aminotransferase (ALT/SGPT) 37 U/L (14-59) Alkaline Phosphatase 80 U/L (46-116) Troponin I High Sensitivity 4 ng/L (4-50) Total Protein 7.2 g/dL (6.4-8.2) Albumin 3.9 g/dL (3.4-5.0) Albumin/Globulin Ratio 1.2 (1.0-1.7) Influenza Type A Antigen Negative (NEGATIVE) Influenza Type B Antigen Negative (NEGATIVE) SARS-CoV-2 Antigen (Rapid) Negative (NEGATIVE) Test 12/07/21 07:21 Glucose (Fingerstick) 119 mg/dL (70-99) Brief Hospital Course Ms. Mast is a 66 old female who presented with generalized weakness, lactic acidosis, spinal stenosis with back pain. He had CT of lumbar spine that showed L4/S1 prior fusion, degenerative changes with central foraminal stenosis, compression of intraforaminal course of nerve root of right L3-4 and L5-S1. I believe she is suffering from acute viral illness. Lactic acidosis resolved with IV fluids. Discussed with patient, she feels comfortable discharging home with close follow-up with Dr. Lee. Discharge Information Condition at Discharge: Stable Disposition/Orders: D/C to Home Scheduled Alendronate Sodium (Alendronate Sodium) 70 Mg Tablet, 70 MG PO WEEKLY for , (Reported) Entered as Reported by: ASHLY GRAHAM on 12/07/21819 Last Action: New Order on 12/07/21819 by ASHLY GRAHAM Anastrozole (Arimidex) 1 Mg Tablet, 1 MG PO DAILY, (Reported) Entered as Reported by: TIFFANY MEJIA on 12/23/16 1341 Last Action: Reviewed on 12/07/21819 by ASHLY GRAHAM Atorvastatin Calcium (Lipitor) 40 Mg Tablet, 40 MG PO HS for FOR CHOLESTEROL, (Reported) Entered as Reported by: AGUSTÍN GARRIDO on 06/22/16 105 Last Action: Continued on 12/07/21806 by DAWIT ATTE MD Citalopram Hydrobromide (Citalopram Hbr) 10 Mg Tablet, 10 MG PO DAILY, (Repo rted) Entered as Reported by: AGUSTÍN GARRIDO on 06/22/16 105 Last Action: Continued on 12/07/21806 by DAWIT TATE MD Lisinopril/Hydrochlorothiazide (Lisinopril-Hctz 20-25 Mg Tab) 1 Each Tablet, 1 TAB PO DAILY, (Reported) Entered as Reported by: AGUSTÍN GARRIDO on 06/22/16 105 Last Action: Converted on 12/07/21806 by DAWIT TATE MD Metformin Hcl (Metformin Hcl) 500 Mg Tablet, 500 MG PO BIDWMEALS for ANTI- DIABETIC, (Reported) Entered as Reported by: AGUSTÍN GARRIDO on 06/22/16 105 Last Action: Reviewed on 12/07/21817 by ASHLY GRAHAM Pantoprazole Sodium (Pantoprazole Sodium ) 40 Mg Tablet.dr, 40 MG PO DAILYAC for GERD, (Reported) Entered as Reported by: ASHLY GRAHAM on 12/07/21819 Last Action: New Order on 12/07/21819 by ASHLY GRAHAM Sertraline Hcl (Zoloft) 100 Mg Tablet, 100 MG PO DAILY for ANTI-DEPRESSANT, Ref 0 (Reported) Entered as Reported by: ASHLY GRAHAM on 12/07/21818 Last Action: New Order on 12/07/21818 by ASHLY GRAHAM Justicifation of Admission Dx: Justifications for Admission: Justification of Admission Dx: Yes DAWIT TATE MD Dec 07, 2021 10:52
[2021-12-07] MEDS ORDERED: ONDA8TAB15 PO (10:57)
[2021-12-07] MEDS ORDERED: HYDR-2761 PO (10:57)
[2021-12-07] MEDS ORDERED: INSULIN LISPRO 300 UNITS/3 ML VIAL. SQ SCH (12:00)
[2021-12-07] MEDS ORDERED: ATORVASTATIN CALCIUM 40 MG TABLET. PO SCH (21:00)
== END 2021-12-07 12:03 | disposition home or self-care (01) | DRG 866 ==
LOC: ER 15:11 → 6 SOUTH 19:34
PROVIDERS: ADMIT Student in an Organized Health Care Education/Training Program; ATTEND Student in an Organized Health Care Education/Training Program
DX: B34.9 Viral infection, unspecified (principal); E11.9 Type 2 diabetes mellitus without complications; E78.00 Pure hypercholesterolemia, unspecified; E78.5 Hyperlipidemia, unspecified; F17.210 Nicotine dependence, cigarettes, uncomplicated; I10 Essential (primary) hypertension; K21.9 Gastro-esophageal reflux disease without esophagitis; M48.061 Spinal stenosis, lumbar region without neurogenic claudication; M54.41 Lumbago with sciatica, right side; Z79.811 Long term (current) use of aromatase inhibitors; Z79.84 Long term (current) use of oral hypoglycemic drugs; Z79.899 Other long term (current) drug therapy; Z83.3 Family history of diabetes mellitus; Z85.3 Personal history of malignant neoplasm of breast; Z90.12 Acquired absence of left breast and nipple; Z90.710 Acquired absence of both cervix and uterus; Z98.1 Arthrodesis status; Z20.822 Contact with and (suspected) exposure to COVID-19
CPT/HCPCS: 36415; 71045; 71260; 74177; 80053; 81001; 82962; 83605; 84484; 85025; 87040; 87428; 93005; J7030; Q9967; 99285-25; G0378